=== PATIENT | female | born 2005 | race African-American/Black ===

== ENCOUNTER 2025-04-10 01:50 | Emergency (ER) | payer OTHER, SELFPAY ==
[2025-04-10 01:54] VITALS: BP 102/74; BMI 24.2
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
== END 2025-04-10 03:50 | disposition home or self-care (01) ==
LOC: EMR 01:50
PROVIDERS: EMERGENCY PHYSICIAN Emergency Medicine
DX: F32.A Depression, unspecified (principal); G89.29 Other chronic pain; Z63.8 Other specified problems related to primary support group
CPT/HCPCS: 99283